=== PATIENT | male | born 1955 | race Caucasian/White ===

== ENCOUNTER 2017-10-06 05:53 | Day surgery (SDC) | payer OTHER ==
[~2017-10-06] VITALS: Ht 188 cm; Wt 95.3 kg
--- NOTE | ~2017-10-06 | HP ---
PATIENT: MARIE OMER MEDICAL RECORD: [id number] ACCOUNT: [id number] LOCATION:[facility] : 59 ADMISSION DATE: 10/06/17 HISTORY AND PHYSICAL EXAMINATION HISTORY OF PRESENT ILLNESS: I saw the patient out at the long-term. I performed a consultation on him there. The patient has a posterior lying anal fissure. I performed a procedure for prolapse and hemorrhoids on the patient in the past. I will plan for an anal evaluation under anesthesia with a lateral internal sphincterotomy. The risks, possible complications, and alternatives to procedure were explained to the patient. He elects to proceed. PAST MEDICAL AND SURGICAL HISTORY: Questionable history of a cardiac rhythm problem, gastroesophageal reflux, hepatitis C, tonsillectomy and adenoidectomy, history of hemorrhoidectomy. HOME MEDICINES: At the long-term: famotidine, Fiber-Lax, omeprazole, terazosin. ALLERGIES: No known drug allergies. PHYSICAL EXAMINATION: GENERAL: The patient does not appear acutely ill. He does appear chronically ill. VITAL SIGNS: Reviewed. EARS: External ears appear normal. EYES: Extraocular movements are intact. NECK: Trachea is midline. CHEST: No intercostal retractions. PULMONARY: Nonlabored, no stridor. ABDOMEN: Nontender. IMPRESSION: Chronic anal fissure. PLAN: Will be anal evaluation under anesthesia with lateral internal sphincterotomy. TRANSINT:[id number] Voice Confirmation ID: [id number] DOCUMENT ID: [id number] DEEPTI KELLY MD at 1327 CC: DEEPTI EDWARDS MD, KELVIN SPANN MD and CHIO RAGSDALE [id number] DICTATION DATE: 10/06/17929 ART MODEL: 10/06/17957 REG [facility] [address] [id number]
--- NOTE | ~2017-10-06 | OP ---
PATIENT NAME: MARIE OMER MEDICAL RECORD: [id number] :59 LOCATION:[facility] ADMISSION DATE: SURGEON: DEEPTI KELLY MD DATE OF OPERATION: 10/06/2017 PREOPERATIVE DIAGNOSIS: Chronic anal fissure. POSTOPERATIVE DIAGNOSIS: Chronic anal fissure. PROCEDURE: Anal evaluation under anesthesia with lateral internal sphincterotomy. SURGERON: Deepti Kelly MD HISTOLOGY MANAGER: None. BLOOD LOSS: Minimal. ANESTHESIA: General. COMPLICATIONS: None. The risks, possible complications and alternatives to procedure were explained to the patient. He elects to proceed. The discussion specifically included, but was not limited to, bleeding requiring emergency reoperation, infection, persistence or recurrence of the anal fissure. OPERATIVE COURSE: The patient was conveyed to the operating room electively on 10/06/2017. General anesthesia was induced by the anesthesia staff. The patient was placed in the lithotomy position. The buttocks were taped laterally. The anus and perianal areas were sterilely prepped and draped. U-shaped anal retractors were placed. I saw no enlargement of the external hemorrhoids. No enlargement or prolapse of the internal hemorrhoids. There was a large chronic-appearing posterior lying anal fissure. At the 3 o'clock position, an incision was accomplished in the anal mucosa. I dissected down to the internal anal sphincter. This was divided. I then closed the anal mucosa with a running locking 3-0 Vicryl suture. I packed Gelfoam within the anus and lower rectum. A combination of sterile preparation and Marcaine were used to infiltrate the perianal tissues. A topical anesthetic cream was applied to the external hemorrhoids. The patient was then extubated and conveyed to the post-anesthesia care unit, where he was in stable condition. He will be dismissed home on a narcotic analgesic. There is no need for him to see me in the office unless he develops a complication related to this operative procedure. TRANSINT:[id number] Voice Confirmation ID: [id number] DOCUMENT ID: [id number] OPERATIVE REPORT [id number] NEGRAMARIE DEEPTI KELLY MD at 1327 CC: DEEPTI EDWARDS MD, KELVIN SPANN MD, YOLI WOODRUFF MD and [facility],[id number] DICTATION DATE: 10/06/17 0930 AUTHOR: 12/28/17 1102 REG [facility] [address] [id number]
[~2017-10-06 05:53] MED LIST: ADVIL100 M1 PO; TERAZOSIN HCL2 MG PO; ZANTAC150 MG PO
[2017-10-06 06:21] VITALS: BP 120/75; Ht 188 cm; Wt 95.3 kg
== END 2017-10-06 12:00 | disposition home or self-care (01) ==
LOC: D.OPS 05:53
DX: K60.1 Chronic anal fissure (principal); K21.9 Gastro-esophageal reflux disease without esophagitis; B19.20 Unspecified viral hepatitis C without hepatic coma; Z01.812 Encounter for preprocedural laboratory examination